=== PATIENT | female | born 1995 | race Two or more races ===

== ENCOUNTER 2020-10-16 13:16 | Emergency (ER) | payer OTHER ==
[~2020-10-16] VITALS: Ht 160 cm; Wt 59.9 kg
[2020-10-16] MEDS ORDERED: IVERMECTIN3 MG PO (17:15)
[2020-10-16] MEDS ORDERED: SYMBICORT 16010.2 GM IH (17:15)
[2020-10-16] MEDS ORDERED: VITAMIN D3250 MC1 PO (17:15)
[2020-10-16] MEDS ORDERED: TESSALON PERLE100 M1 PO (17:15)
[2020-10-16] MEDS ORDERED: MELATONIN10 MG PO (17:15)
[2020-10-16] MEDS ORDERED: ZITHROMAX500 MG PO (17:15)
[2020-10-16] MEDS ORDERED: ZINC GLUCONATE100 MG PO (17:15)
[2020-10-16] MEDS ORDERED: MEDROLPACK PO (17:15)
[2020-10-16] MEDS ORDERED: VITAMIN C500 M6 PO (17:15)
== END 2020-10-16 17:30 | disposition home or self-care (01) ==
LOC: ER 13:16
DX: U07.1 COVID-19 (principal); J98.01 Acute bronchospasm; E86.0 Dehydration; E87.8 Other disorders of electrolyte and fluid balance, not elsewhere classified